=== PATIENT | female | born 1960 | race Caucasian/White ===

== ENCOUNTER 2019-04-11 09:59 | Day surgery (SDC) | payer OTHER ==
[~2019-04-11] VITALS: Ht 157.5 cm; Wt 74.5 kg
[2019-04-11 11:05] VITALS: Ht 157.5 cm; Wt 74.5 kg
[2019-04-11] MEDS ORDERED: LISI10TA2 PO (11:09)
[2019-04-11 11:19] VITALS: BP 132/80; PULSE 88; RESP 18
[2019-04-11 11:55] VITALS: BP 117/55; PULSE 72; RESP 20
[2019-04-11 12:05] VITALS: BP 111/56; PULSE 68; RESP 16
[2019-04-11] MEDS ORDERED: MIDAZOLAM 1 MG/ML 2 ML INJ ONE ×2 (12:07→12:08)
[2019-04-11] MEDS ORDERED: FENTAnyl 50 MCG/ML VIAL ONE (12:08)
[2019-04-11 12:10] VITALS: BP 106/56; PULSE 68; RESP 18
[2019-04-11 12:18] VITALS: BP 140/57; PULSE 70; RESP 18
== END 2019-04-11 15:48 | disposition home or self-care (01) ==
LOC: GIL 09:59
PROVIDERS: ATTEND Internal Medicine Gastroenterology
DX: Z12.11 Encounter for screening for malignant neoplasm of colon (principal); K64.8 Other hemorrhoids; D12.5 Benign neoplasm of sigmoid colon
CPT/HCPCS: 45385; 88305; J2250; J3010